=== PATIENT | male | born 1975 | race Caucasian/White ===

== ENCOUNTER 2024-02-20 12:11 | Outpatient (CLI) | payer OTHER, SELFPAY | END 2024-02-20 12:12 | disposition home or self-care (01) | PROVIDERS: PCP Family Medicine; Visit Provider Family Medicine | DX: R53.83 Other fatigue (principal); Z13.220 Encounter for screening for lipoid disorders; Z13.21 Encounter for screening for nutritional disorder; Z13.0 Encounter for screening for diseases of the blood and blood-forming organs and certain disorders involving the immune mechanism; Z13.29 Encounter for screening for other suspected endocrine disorder | CPT/HCPCS: 80061; 82607; 82728; 84439; 84443; 85025 ==

== ENCOUNTER 2024-07-30 16:03 | Outpatient (CLI) | payer OTHER, SELFPAY | END 2024-07-30 16:04 | disposition home or self-care (01) | PROVIDERS: PCP Family Medicine; Visit Provider Family Medicine | DX: R79.89 Other specified abnormal findings of blood chemistry (principal); U09.9 Post COVID-19 condition, unspecified; Z12.5 Encounter for screening for malignant neoplasm of prostate | CPT/HCPCS: 80048; 82306; 82670; 82728; 84270; 84402; 84403; 85025; 86140; G0103 ==

== ENCOUNTER 2024-10-30 13:05 | Outpatient (CLI) | payer OTHER, SELFPAY | END 2024-10-30 13:06 | disposition home or self-care (01) | PROVIDERS: PCP Family Medicine; Visit Provider Family Medicine | DX: N52.9 Male erectile dysfunction, unspecified (principal); Z13.1 Encounter for screening for diabetes mellitus; Z13.6 Encounter for screening for cardiovascular disorders | CPT/HCPCS: 80048; 80061 ==

== ENCOUNTER 2024-11-07 09:16 | Outpatient (CLI) | payer OTHER, SELFPAY ==
--- NOTE | 2024-11-07 10:44 | P.ANES_ITS ---
Anesthesia Charges Start Date/Time Anesthesia Start Date: 11/07/24 Anesthesia Start Time: 10:07 Stop Date/Time Anesthesia Stop Date: 11/07/24 Anesthesia Stop Time: 10:40 Coding CPT Codes CPT Codes: CHACHO LWR INTST NDSC NOS - [id number] ([id number]) P2 - PATIENT W/MILD SYST DISEASE, QK - NURSE STAFF INDUSTRIAL 2-4 CNCRNT ANES PROC, QX - LOSS PREVENTION ANALYST SVC W/ MD MED DIRECTION
--- NOTE | 2024-11-07 10:44 | W.ANESCHARGE ---
Anesthesia Charges Start Date/Time Anesthesia Start Date: 11/07/24 Anesthesia Start Time: 10:07 Stop Date/Time Anesthesia Stop Date: 11/07/24 Anesthesia Stop Time: 10:40 Coding CPT Codes CPT Codes: CHACHO LWR INTST NDSC NOS - [id number] ([id number]) P2 - PATIENT W/MILD SYST DISEASE, QK - ENTRY LEVEL STAFF ACCOUNTANT 2-4 CNCRNT ANES PROC, QX - PRODUCT COORDINATOR SVC W/ MD MED DIRECTION
--- NOTE | 2024-11-07 10:49 | P.ANES_ITS ---
Anesthesia Charges Start Date/Time Anesthesia Start Date: 11/07/24 Anesthesia Start Time: 10:07 Stop Date/Time Anesthesia Stop Date: 11/07/24 Anesthesia Stop Time: 10:40 Coding CPT Codes CPT Codes: CHACHO LWR INTST NDSC NOS - [id number] ([id number]) P2 - PATIENT W/MILD SYST DISEASE, QK - MAINTENANCE MANAGER 2-4 CNCRNT ANES PROC
--- NOTE | 2024-11-07 10:49 | W.ANESCHARGE ---
Anesthesia Charges Start Date/Time Anesthesia Start Date: 11/07/24 Anesthesia Start Time: 10:07 Stop Date/Time Anesthesia Stop Date: 11/07/24 Anesthesia Stop Time: 10:40 Coding CPT Codes CPT Codes: CHACHO LWR INTST NDSC NOS - [id number] ([id number]) P2 - PATIENT W/MILD SYST DISEASE, QK - WOUND NURSE 2-4 CNCRNT ANES PROC
== END 2024-11-07 09:17 | disposition home or self-care (01) ==
PROVIDERS: PCP Family Medicine; Visit Provider Surgery
DX: Z12.11 Encounter for screening for malignant neoplasm of colon (principal); D12.0 Benign neoplasm of cecum; D12.2 Benign neoplasm of ascending colon; D12.8 Benign neoplasm of rectum; K64.8 Other hemorrhoids
CPT/HCPCS: 00811; 00812; 45385; J2704